=== PATIENT | male | born 1950 | race Caucasian/White ===

== ENCOUNTER → 2024-02-03 | Outpatient (CLI) | payer MEDICARE ==
--- NOTE | 2024-02-03 11:38 | HMCIMG ---
SCOLIOSIS 2-3VW REASON: LUMBAR STENOSIS. COMPARISON: None TECHNIQUE: Scoliosis series was performed. FINDINGS: There is dextroscoliosis of thoracic spine with scoliotic angle of 26 degrees. No loss of vertebral height is seen. IMPRESSION: Scoliosis.
--- NOTE | 2024-02-03 11:40 | HMCIMG ---
CERV SPINE 4-5 VWS REASON: CERVICAL STENOSIS OF SPINE. COMPARISON: None TECHNIQUE: 5 images of cervical spine were obtained. FINDINGS: There is reversal of normal lordotic cervical curvature which may be related to muscle spasm or positioning. Disc space narrowings are seen at C3-4, C4-5 and C5-6 levels. No loss of vertebral height is seen. Degenerative changes are seen with cervical spine spondylosis. IMPRESSION: Findings at described above.
== END | disposition home or self-care (01) ==
LOC: RAH 10:18
PROVIDERS: ATTEND Physical Medicine & Rehabilitation
DX: M47.812 Spondylosis without myelopathy or radiculopathy, cervical region (principal); M48.02 Spinal stenosis, cervical region; M41.85 Other forms of scoliosis, thoracolumbar region; M54.16 Radiculopathy, lumbar region; M48.061 Spinal stenosis, lumbar region without neurogenic claudication; G60.0 Hereditary motor and sensory neuropathy
CPT/HCPCS: 72050; 72082

== ENCOUNTER → 2024-02-04 | Outpatient (CLI) | payer MEDICARE ==
--- NOTE | 2024-02-04 13:30 | HMCIMG ---
MR SPINAL CANAL, CERV WO CON HISTORY: Spinal stenosis COMPARISON: None TECHNIQUE: MRI of the cervical spine was performed utilizing multiple pulse sequences in axial, coronal and sagittal plane. Patient was not given contrast through intravenous route. FINDINGS: No abnormal signal intensity is seen of the visualized bony structure. No loss of vertebral height is seen. There is straightening of normal lordotic cervical curvature which may be related to muscle spasm or positioning. Degenerative disc signals are present at all cervical spine levels. Cerebellar tonsils are in normal position. The cervical cord is of normal signal intensity without cord compression or impingement. At the C3-4 level, there is spondylotic disc causing anterior CSF space effacement with bilateral lateral recess stenosis and bilateral neural foraminal stenosis. The central canal measures approximately 5.7 mm in its anterior posterior dimension. At the C4-5 level, there is spondylotic disc causing anterior CSF space effacement with bilateral lateral recess stenosis and bilateral neural foraminal stenosis. The central canal measures approximately 5 mm in its anterior posterior dimension. At the C5-6 level, there is spondylotic disc causing anterior CSF space effacement with bilateral lateral recess stenosis and bilateral neural foraminal stenosis. The central canal measures approximately 4.5 mm in its anterior posterior dimension. IMPRESSION: 1. 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
== END | disposition home or self-care (01) ==
LOC: RAH 11:13
PROVIDERS: ATTEND Physical Medicine & Rehabilitation
DX: M47.812 Spondylosis without myelopathy or radiculopathy, cervical region (principal); M48.02 Spinal stenosis, cervical region; M54.16 Radiculopathy, lumbar region; M48.061 Spinal stenosis, lumbar region without neurogenic claudication; G60.0 Hereditary motor and sensory neuropathy
CPT/HCPCS: 72141